=== PATIENT | female | born 1985 | race Caucasian/White ===

== ENCOUNTER 2018-04-06 08:52 | Emergency (ER) | payer OTHER ==
[2018-04-06 08:59] VITALS: BMI 30.2
--- NOTE | 2018-04-06 12:19 | US ---
Date of service: 04/06/2018 PROCEDURE: OB Pelvic Ultrasound HISTORY: Potential ROM COMPARISON: None available. FINDINGS: UTERUS: Single live intrauterine fetus in cephalic presentation. Placenta is anterior. heart rate is 142 BPM. biophysical profile scoring: breathing movements: 2 movements: 2 tones: 2 Amniotic Fluid: 2 Total score: 8 CERVIX: Not visualized. FREE FLUID: None. OTHER FINDINGS: None. IMPRESSION: Single live intrauterine fetus in cephalic presentation. Placenta is anterior. biophysical profile score is normal, 01/25.
[2018-04-06 17:15] VITALS: BP 128/86; PULSE 91; O2SAT 94
--- NOTE | 2018-04-07 08:48 | OBHP ---
Datetime: 04/06/2018 09:56 IP Adm Impression: Term, intrauterine IP Admit Plan: Observation/Evaluation; Discharge home Admit Comment, IP Provider: 32 year old at 37.4 (confirmed by 1st tri U/S and LMP Jun 2017; ZAYNAB Nov 4) presents for suspected ROM at 7:45 am, 45 minutes prior to presentation. Patient denies a clau h of fluid but reports it was enough to soak through her underwear. Fluid was clear with no blood or odor. She denies vaginal bleeding and contractions and reports good movement. has bee n uncomplicated thus far. bedside. : Huy PMHx: Chrons - no flare ups during Meds: none, PNV daily Allergies: Infliximab - anaphylaxis rxn Surg Hx: 2014: appendectomy and bowel resection Family Hx: mother and father in good health Social: denies tobacco, alcohol, illicit drug use Labs: GBS neg, HIV neg, HbsAg neg, RPR neg, Rubella immune, Blood type O- (antibody neg) PE: comfortable, in no acute distress CV: RRR Resp: no respiratory distress Abd: no tenderness to palpation VE: wildlife technician present. speculum exam shows no pooling or leaking of fluid from cervix (closed) Assessment:32 year old at 37.4 (confirmed by 1st tri U/S and LMP Jun 2017; ZAYNAB Nov 4) present s for suspected ROM at 7:45 am, 45 minutes prior to presentation. Plan -NST/BPP: reactive, BPP 8 -Due to reassuring NST, BPP and speculum exam patient is cleared for discharge to home. -Signs and symptoms warranting emergent visit to [facility] discussed -F/u routine appt next week with Dr Son Case seen and discussed with Dr Swenson ---Tatiana Rosa, PGY1 Addendum: I saw and examined patient at presentation. No evidence of rupture of membranes at this time. Biop hysical profile 8 out of 8. Plan to discharge patient home. Discussed plan with patient all patient q uestions answered. [place] Pelvic Type - PN: Adequate Extremities - PN: Normal Abdomen - PN: Normal Back - PN: Not Done Breast - PN: Not Done Lungs - PN: Normal Heart - PN: Normal Thyroid - PN: Not Done Neurologic - PN: Not Done HEENT - PN: Normal General - PN: Normal FHR - Baseline A Provider: 150 Comments, ACOG Physical Exam: Sterile speculum exam: No fluid, no discharge, no bleeding, no fluid with Valsalva. Pool Provider: Negative EGA AdmitDate IP: 37.4 Vital Signs Provider: Reviewed; Within Normal Limits IP Chief Complaint: Suspected ruptured membranes NICHD Variability Prov Fetus A: Moderate 6-25bpm NICHD Accel Fetus A IP Provider: [id number] FHR Category Provider Fetus A: Category I NICHD Decel Fetus A IP Provider: None Dilatation, Provider: 0 Effacement, Provider: 0 Station, Provider: -4 Genitourinary Exam: Not Done DTRs - PN: Not Done
== END 2018-04-06 12:27 | disposition home or self-care (01) ==
LOC: H.EROB2 08:52 → H.EROB 09:18 → H.EROB2 12:27
DX: O34.63 Maternal care for abnormality of vagina, third trimester (principal); N89.8 Other specified noninflammatory disorders of vagina; Z3A.37 37 weeks gestation of pregnancy; O47.1 False labor at or after 37 completed weeks of gestation